=== PATIENT | female | born 1950 | race Caucasian/White ===

== ENCOUNTER → 2018-07-01 | Outpatient (CLI) | payer MEDICARE, OTHER | LOC: M WHC 13:34 | DX: Z13.820 Encounter for screening for osteoporosis (principal); M85.9 Disorder of bone density and structure, unspecified; M25.532 Pain in left wrist | CPT/HCPCS: 77080 ==

== ENCOUNTER → 2020-11-09 | Outpatient (CLI) | payer MEDICARE, OTHER ==
[~2020-11-09] MED LIST: AMBI5TAB PO; BARI1CHW PO; CALC1TAB67 PO; ESCI20TA16 PO; OPUR1TAB PO; REST0.05 OU
--- NOTE | 2020-11-09 12:40 | REPMRS ---
Patient History The patient states she has not had a clinical breast exam in over a year. Patient is postmenopausal. Family history of colorectal cancer at age 55 in mother, colorectal cancer at age 60 in maternal aunt. Benign excisional biopsy of both breasts, 1975. No Hormone Replacement Therapy Digital Woman Screen Mammo: November 09, 2020 - Exam #: [id number] Bilateral CC and MLO view(s) were taken. Technologist: Chelsy Tran, Technologist Prior study comparison: October 03, 2019, bilateral digital mammo screening bilat, performed at [facility] [employer]. September 08, 2018, bilateral digital mammo screening bilat, performed at [facility] [employer]. September 07, 2017, bilateral digital mammo screening bilat, performed at [facility]. FINDINGS: There are scattered fibroglandular densities. The Volpara volumetric breast density category is:B. There has been no change in the appearance of the mammogram from the prior studies. There is a mild amount of scattered fibroglandular density which is fairly symmetric. There is no interval development of dominant mass, architectural distortion, or grouped microcalcification suggestive of malignancy. 3-D tomosynthesis shows no additional findings. Assessment: BI-RADS/ACR category 1 mammogram. Negative Mammogram. Recommendation Routine screening mammogram of both breasts in 1 year (for women over age 40). This patient's [facility] Lifetime Breast Cancer Risk is estimated at 4.0 %. This mammogram was interpreted with the aid of an FDA-approved computer-aided dectection system. Electronically Signed By: Hong Hood MD 11/09/20 [id number]
== END ==
LOC: M WHC 10:57
PROVIDERS: ATTEND Family Medicine
DX: Z12.31 Encounter for screening mammogram for malignant neoplasm of breast (principal); Z80.0 Family history of malignant neoplasm of digestive organs; Z86.018 Personal history of other benign neoplasm

== ENCOUNTER → 2022-01-24 | Outpatient (CLI) | payer MEDICARE, OTHER | LOC: M WHC 09:36 | PROVIDERS: ATTEND Family Medicine | DX: Z12.31 Encounter for screening mammogram for malignant neoplasm of breast (principal) ==

== ENCOUNTER 2023-03-02 08:35 | Day surgery (SDC) | payer MEDICARE, OTHER ==
[~2023-03-02] VITALS: Ht 170.2 cm; Wt 88.0 kg
[~2023-03-02 08:35] MED LIST changes: +ALLE180T33 PO; +IRON27TA2 PO; +LEXA1TAB2 PO; +LISI20TA33 PO; +NS 1,000 ML IV ONE; +VITMTA PO
[2023-03-02] MEDS ORDERED: propofoL 200 MG/20 ML VIAL As Ordered ONE (10:06)
[2023-03-02 10:22] VITALS: TEMP 97.7
[2023-03-02 10:42] VITALS: BP 106/58; O2SAT 99
== END 2023-03-02 10:45 | disposition home or self-care (01) ==
LOC: M OPP 08:35
PROVIDERS: ATTEND Internal Medicine Gastroenterology
DX: Z12.11 Encounter for screening for malignant neoplasm of colon (principal); Z86.010 Personal history of colon polyps; Z80.0 Family history of malignant neoplasm of digestive organs; K64.0 First degree hemorrhoids; Z79.899 Other long term (current) drug therapy; Z88.8 Allergy status to other drugs, medicaments and biological substances

== ENCOUNTER → 2023-06-18 | Outpatient (CLI) | payer MEDICARE, OTHER ==
[~2023-06-18] MED LIST changes: -NS 1,000 ML IV ONE
== END ==
LOC: M WHC 09:25
PROVIDERS: ATTEND Family Medicine
DX: Z13.820 Encounter for screening for osteoporosis (principal); Z12.31 Encounter for screening mammogram for malignant neoplasm of breast; M85.851 Other specified disorders of bone density and structure, right thigh; M85.852 Other specified disorders of bone density and structure, left thigh

== ENCOUNTER → 2025-03-29 | Outpatient (REF) | payer MEDICARE, OTHER ==
[~2025-03-29] MED LIST changes: -AMBI5TAB PO; +ZOLP-532 PO
== END ==
LOC: M SFHCADAM 10:00
PROVIDERS: ATTEND Nurse Practitioner Family
DX: Z53.9 Procedure and treatment not carried out, unspecified reason (principal)

== ENCOUNTER 2025-05-10 11:41 | Inpatient (IN) | payer MEDICARE, OTHER ==
[~2025-05-10] VITALS: Ht 170.2 cm; Wt 94.3 kg
[~2025-05-10 11:41] MED LIST changes: +CALC1TAB30 PO; +DULO1CAP5 PO; +LISI10TA22 PO; +MAGN400T33 PO; +POTA99CA2 PO; +THERTAB52 PO; +VITA500038 PO; +VITATAB73 PO
[2025-05-10] MEDS ORDERED: BISACODYL 10 MG SUPP PR PRN (12:05)
[2025-05-10] MEDS ORDERED: MOM 30 ML SUSPENSION UDC PO PRN (12:05)
[2025-05-10] MEDS ORDERED: SIMETHICONE 80MG CHEW TAB PO PRN (12:05)
[2025-05-10] MEDS ORDERED: MAALOX 30 ML SUSP *UDC PO PRN (12:05)
[2025-05-10] MEDS ORDERED: BISACODYL 5 MG TAB PO PRN (12:05)
[2025-05-10] MEDS ORDERED: ONDANSETRON 4MG ORAL DISINTEGRATING TAB PO PRN (12:20)
[2025-05-10 13:05] VITALS: BP 157/72; TEMP 97.9; O2SAT 96
[2025-05-10] MEDS ORDERED: ceFAZolin SOD 1 GM in DEXTROSE 5% (D5W) ADV/MINI-BAG 50 ML IV ONE (14:00)
[2025-05-10] MEDS: ceFAZolin SOD 1 GM in DEXTROSE 5% (D5W) ADV/MINI-BAG 50 ML IV ONE (16:14)
[2025-05-10 20:00] VITALS: BP 162/72; TEMP 98.5; O2SAT 93
[2025-05-10] MEDS: ACETAMINOPHEN 500 MG TAB PO SCH (20:06)
[2025-05-10] MEDS: SENNA 8.6 MG TAB PO SCH (21:00)
[2025-05-10] MEDS: SENNOSIDES/DOCUSATE SODIUM 8.6 MG/50MG TAB PO SCH (21:00)
[2025-05-11] VITALS (7 sets, daily range): BP systolic 116–160; BP diastolic 56–77; TEMP 97.9–99; O2SAT 90–99
[2025-05-11 07:12] LABS: BASO # 0.0 10^3/uL (0.0-0.2); BASO % 0.6 % (0.0-1.0); EOS # 0.1 10^3/uL (0.0-0.5); EOS % 2.0 % (0.0-3.0); LYMPH # 0.9 10^3/uL (1.5-5.0); LYMPH % 12.4 % (24.0-44.0); MONO # 0.7 10^3/uL (0.0-0.8); MONO % 10.4 % (2.0-8.0); NEUTROPHILS # 5.3 10^3/uL (1.5-8.5); NEUTROPHILS % 74.3 % (36.0-66.0); PLATELET COUNT, AUTOMATED 164 10^3/uL (150-450)
[2025-05-11] MEDS: ENOXAPARIN 40 MG/0.4 ML SYRINGE (J1650 PER 10MG) SC SCH (07:28)
[2025-05-11] MEDS: CEFDINIR 300 MG CAP PO SCH (07:29)
[2025-05-11] MEDS: MAGNESIUM OXIDE 400 MG TAB PO SCH (07:30)
[2025-05-11] MEDS: CALCIUM/VITAMIN D 500 MG TAB PO SCH (07:30)
[2025-05-11] MEDS: FERROUS GLUCONATE 324 MG TAB PO SCH (07:30)
[2025-05-11] MEDS: VITAMIN B COMPLEX/VIT C CAP PO SCH (07:30)
[2025-05-11] MEDS: MIRALAX *UNIT DOSE* 17 GM PACKET PO SCH (07:31)
[2025-05-11 07:58] LABS: ALT/SGPT 11 U/L (7.0-40); CALCIUM LEVEL 7.6 MG/DL (8.3-10.6); CARBON DIOXIDE LEVEL 28 MMOL/L (20-31); CHLORIDE LEVEL 107 MMOL/L (98-107); CREATININE FOR GFR 0.65 MG/DL (0.55-1.30); GLOMERULAR FILTRATION RATE > 90.0 (>39); POTASSIUM SERUM 3.8 MMOL/L (3.5-5.1); SODIUM LEVEL 141 MMOL/L (136-145)
[2025-05-11] MEDS: MIDODRINE 5 MG TAB PO ONE (10:10)
[2025-05-11] MEDS ORDERED: NS (Normal Saline) 0.9% 1,000 ML IV SCH (10:30)
[2025-05-11 11:25] LABS: INR 1.1
[2025-05-11] MEDS ORDERED: MIDODRINE 5 MG TAB PO PRN (12:00)
[2025-05-12 04:00] VITALS: BP 156/71; TEMP 98; O2SAT 97
[2025-05-12 06:26] LABS: AST/SGOT 16 U/L (<34)
[2025-05-12 08:35] LABS: PLATELET COUNT, AUTOMATED 199 10^3/uL (150-450)
[2025-05-12 13:12] VITALS: BP 148/72; TEMP 98.1; O2SAT 96
[2025-05-12 20:00] VITALS: BP 161/71; TEMP 97.6; O2SAT 95
[2025-05-13 04:00] VITALS: BP 152/69; TEMP 97.8; O2SAT 94
[2025-05-13 08:36] LABS: PLATELET COUNT, AUTOMATED 247 10^3/uL (150-450)
[2025-05-13 11:48] VITALS: BP 135/64; TEMP 96.7; O2SAT 95
[2025-05-13 20:00] VITALS: BP 161/71; TEMP 97.4; O2SAT 96
[2025-05-14 04:00] VITALS: BP 130/71; TEMP 97.6; O2SAT 97
[2025-05-14 12:00] VITALS: BP 121/81; TEMP 97.6; O2SAT 97
[2025-05-14 20:00] VITALS: BP 155/75; TEMP 97.1; O2SAT 97
[2025-05-15 04:00] VITALS: BP 169/77; TEMP 97; O2SAT 96
[2025-05-15 06:00] VITALS: BP 142/70
[2025-05-15 12:00] VITALS: BP 141/72; TEMP 98.7; O2SAT 96
[2025-05-15 19:09] VITALS: BP 179/79; TEMP 99.6; O2SAT 97
[2025-05-15 21:15] VITALS: BP 145/70
[2025-05-16 04:00] VITALS: BP 160/82; TEMP 97.9; O2SAT 95
[2025-05-16] MEDS: **hydrALAZINE** 10 MG TAB PO PRN (04:02)
[2025-05-16 12:00] VITALS: BP 137/67; TEMP 98.4; O2SAT 97
[2025-05-16 12:37] LABS: PLATELET COUNT, AUTOMATED 314 10^3/uL (150-450)
[2025-05-16 20:00] VITALS: BP 166/78; TEMP 98; O2SAT 97
[2025-05-16] MEDS: ASPIRIN 81 MG ENTERIC TABLET PO SCH (20:20)
[2025-05-17 04:00] VITALS: BP 177/77; TEMP 97.4; O2SAT 94
[2025-05-17 04:01] VITALS: BP 164/82
[2025-05-17 11:40] VITALS: BP 111/58; TEMP 97.6; O2SAT 93
[2025-05-17] MEDS ORDERED: DOCU8.6T PO (12:22)
[2025-05-17] MEDS ORDERED: ACET-683 PO (12:22)
[2025-05-17] MEDS ORDERED: LISI10TA22 PO (12:22)
[2025-05-17] MEDS ORDERED: OXYC10TA12 PO (12:22)
[2025-05-17] MEDS ORDERED: FERR32TA PO (12:22)
[2025-05-17] MEDS ORDERED: ASPI81TAEC PO (12:22)
[2025-05-17 20:00] VITALS: BP 146/66; TEMP 98.5; O2SAT 94
[2025-05-17 20:33] VITALS: BP 146/66
[2025-05-18 04:00] VITALS: BP 136/63; TEMP 97.1; O2SAT 100
[2025-05-18 10:58] VITALS: BP 142/68
== END 2025-05-18 11:10 | disposition home or self-care (01) | DRG 560 ==
LOC: M PM&R 13:05
PROVIDERS: ADMIT Physical Medicine & Rehabilitation; ATTEND Physical Medicine & Rehabilitation
PROC: 30233N1 Transfusion of Nonautologous Red Blood Cells into Peripheral Vein, Percutaneous Approach (ICD-10-PCS; principal; 2025-05-11)
DX: S72.462D Displaced supracondylar fracture with intracondylar extension of lower end of left femur, subsequent encounter for closed fracture with routine healing (principal); D62 Acute posthemorrhagic anemia; I10 Essential (primary) hypertension; G89.29 Other chronic pain; M54.9 Dorsalgia, unspecified; M19.90 Unspecified osteoarthritis, unspecified site; F32.A Depression, unspecified; I95.1 Orthostatic hypotension; M85.80 Other specified disorders of bone density and structure, unspecified site; F41.9 Anxiety disorder, unspecified; K59.00 Constipation, unspecified; M79.605 Pain in left leg; Z74.1 Need for assistance with personal care; Z74.09 Other reduced mobility; Z96.651 Presence of right artificial knee joint; Z79.899 Other long term (current) drug therapy; Z88.8 Allergy status to other drugs, medicaments and biological substances

== ENCOUNTER → 2025-05-23 | Outpatient (CLI) | payer MEDICARE, OTHER ==
[~2025-05-23] MED LIST changes: +ACET-683 PO; +ASPI81TAEC PO; +DOCU8.6T PO; +FERR32TA PO; +OXYC10TA12 PO
== END ==
LOC: M SOG 07:25
PROVIDERS: ATTEND Orthopaedic Surgery
DX: Z98.890 Other specified postprocedural states (principal); Z47.89 Encounter for other orthopedic aftercare

== ENCOUNTER 2025-06-15 12:47 | Outpatient (RCR) | payer MEDICARE, OTHER | END 2025-06-16 | LOC: M PT 12:47 | PROVIDERS: ATTEND Orthopaedic Surgery | DX: S72.402D Unspecified fracture of lower end of left femur, subsequent encounter for closed fracture with routine healing (principal) ==

== ENCOUNTER → 2025-06-19 | Outpatient (CLI) | payer MEDICARE, OTHER | LOC: M WHC 15:01 | PROVIDERS: ATTEND Nurse Practitioner Family | DX: M81.0 Age-related osteoporosis without current pathological fracture (principal) ==

== ENCOUNTER → 2025-06-23 | Outpatient (CLI) | payer MEDICARE, OTHER | LOC: M SOG 07:41 | PROVIDERS: ATTEND Orthopaedic Surgery | DX: S72.492D Other fracture of lower end of left femur, subsequent encounter for closed fracture with routine healing (principal) ==

== ENCOUNTER 2025-07-11 12:42 | Outpatient (RCR) | payer MEDICARE, OTHER ==
[~2025-07-11 12:42] MED LIST changes: -DOCU8.6T PO; +SENN-208 PO
== END 2025-07-16 ==
LOC: M PT 12:42
PROVIDERS: ATTEND Orthopaedic Surgery
DX: S72.402D Unspecified fracture of lower end of left femur, subsequent encounter for closed fracture with routine healing (principal); Z47.89 Encounter for other orthopedic aftercare

== ENCOUNTER 2025-07-25 12:43 | Outpatient (RCR) | payer MEDICARE, OTHER | END 2025-08-16 | LOC: M PT 12:43 | PROVIDERS: ATTEND Orthopaedic Surgery | DX: S72.402D Unspecified fracture of lower end of left femur, subsequent encounter for closed fracture with routine healing (principal) ==

== ENCOUNTER → 2025-08-03 | Outpatient (CLI) | payer MEDICARE, OTHER | LOC: M SOG 07:31 | PROVIDERS: ATTEND Orthopaedic Surgery | DX: S72.492D Other fracture of lower end of left femur, subsequent encounter for closed fracture with routine healing (principal) ==